=== PATIENT | male | born 1980 | race African-American/Black ===

== ENCOUNTER 2017-11-22 00:33 | Emergency (ER) | payer OTHER ==
[~2017-11-22] VITALS: Ht 172.7 cm; Wt 62.3 kg
[2017-11-22] MEDS ORDERED: FLEXERIL10 MG PO (03:27)
[2017-11-22] MEDS ORDERED: NORCO 5/3251 TABLET PO (03:27)
[2017-11-22 04:15] VITALS: BP 119/88
== END 2017-11-22 04:18 | disposition home or self-care (01) ==
LOC: EME 00:33
DX: S16.1XXA Strain of muscle, fascia and tendon at neck level, initial encounter (principal); S43.402A Unspecified sprain of left shoulder joint, initial encounter; V49.40XA Driver injured in collision with unspecified motor vehicles in traffic accident, initial encounter; Y92.410 Unspecified street and highway as the place of occurrence of the external cause; F17.200 Nicotine dependence, unspecified, uncomplicated
CPT/HCPCS: 70450; 71046; 72125; 73030; 99281; 99283